=== PATIENT | male | born 1930 | race Caucasian/White ===

== ENCOUNTER 2016-06-21 11:19 | Observation (INO) | payer OTHER ==
[2016-06-21 12:09] LABS: % IMMATURE GRANULYOCYTES 0.4 % (0.0-1.1); ABSOLUTE IMMATURE GRANULOCYTES 0.04 10^3/uL (0.00-0.10); ADD DIFF? NO; ADD MORPH? NO; ADD SCAN? NO; ATYPICAL LYMPHOCYTE FLAG 10 (0-99); FRAGMENT RBC FLAG 0 (0-99); HEMATOCRIT 51.7 % (40.0-51.0); HEMOGLOBIN 17.1 g/dL (13.7-17.5); LEFT SHIFT FLG 0 (0-99); LIPEMIA HEMOLYSIS FLAG 80 (0-99); MEAN CELL HEMOGLOBIN 29.6 pg (27.9-34.1); MEAN CELL HEMOGLOBIN CONCENTR. 33.1 g/dL (32.4-36.7); MEAN CELL VOLUME 89.4 fL (81.5-99.8); MEAN PLATELET VOLUME 9.1 fL (8.7-11.7); PLATELET CLUMPS FLAG 10 (0-99); PLATELET COUNT 213 10^3/uL (150-400); RED BLOOD CELL COUNT 5.78 10^6/uL (4.40-6.38); RED CELL DISTRIBUTION WIDTH 13.2 % (11.5-15.2)
[2016-06-21 12:21] LABS: INR 2.39 (0.83-1.16); PROTIME(PATIENT) 26.3 SEC (12.0-15.0)
[2016-06-21 12:31] LABS: ANION GAP 14 mEq/L (8-16); CALCIUM 9.5 mg/dL (8.5-10.4); CARBON DIOXIDE 29 mEq/l (22-31); CHLORIDE 101 mEq/L (97-110); GLOMERULAR FILTRATION RATE 32; GLUCOSE 106 mg/dL (70-100); POTASSIUM 3.5 mEq/L (3.5-5.2); SODIUM 144 mEq/L (134-144)
[2016-06-21 12:42] LABS: TROPONIN I 0.017 ng/mL (0-0.034)
[2016-06-21] MEDS ORDERED: NS 500 ML IV ONE (12:46)
--- NOTE | 2016-06-21 12:50 | EDPHY ---
H & P Stated Complaint: fall on face. Pos LOC, pt is a poor historian Time Seen by Provider: 06/21/16 11:28 HPI/ROS: CHIEF COMPLAINT: facial injuries after fall HISTORY OF PRESENT ILLNESS: 85-year-old male with past medical history coronary artery disease status post stents, atrial fibrillation on Coumadin presents emergency department by ambulance after a fall. Patient states he was walking to the library at the [place] and thinks he tripped over something though is unsure. He reports remembering falling and thinking to himself that was going to hurt. Patient denies preceding chest pain, shortness of breath, lightheadedness or dizziness. He does not remember being picked up by the ambulance. Patient reports a mild headache. He denies shortness of breath, pain to his extremities. He thinks his tetanus is up-to-date. Last INR was 2.5 last week. REVIEW OF SYSTEMS: A comprehensive 10 point review of systems is otherwise negative aside from elements mentioned in the history of present illness. Source: Patient - Personal History Current Tetanus/Diphtheria Vaccine: Yes Current Tetanus Diphtheria and Acellular Pertussis (TDAP): Yes - Medical/Surgical History Hx Asthma: No Hx Chronic Respiratory Disease: No Hx Diabetes: No Hx Cardiac Disease: No Hx Renal Disease: No Hx Cirrhosis: No Hx Alcoholism: No Hx HIV/AIDS: No Hx Splenectomy or Spleen Trauma: No Other PMH: HIGH BLOOD PRESSURE, HIGH CHOLESTEROL, cardiac stent, on blood thinners - Social History Smoking Status: Former smoker - Physical Exam Exam: General Appearance: Alert, no distress, talking appropriately, comfortable. Head: nasal bridge laceration, laceration to nasal septum, abrasion to chin. 2 cm laceration horizontal to inside lower lip Eyes: Pupils equal, round, reactive to light, EOMI, no trauma, no injection. Ears: Clear bilaterally, no perforation, no hemotympanum Nose: laceration to nasal bridge and septum Neck: The cervical spine is non-tender and there is no pain or neurologic deficits with active range of motion. Cardiovascular: Heart is irregular rhythm. Good capillary refill all extremities. Chest: equal bilateral breath sounds. Left sided anterior chest wall ttp, superficial old abrasions to chest and abdomen Gastrointestinal: Soft, non-tender, non-distended. No rebound, guarding, or peritoneal signs. There is no evidence of external or internal trauma. Back:There is no thoracic or lumbar spine or paraspinal tenderness. Extremities: Left knee with tenderness, swelling and ecchymosis over patella. Neurological: The patient has normal DTRs and non-focal Cranial nerves, motor, sensory, and cerebellar exam Skin: see above Constitutional: Initial Vital Signs Temperature (C) 36.5 C 06/21/16 12:07 Heart Rate 105 H 06/21/16 12:07 Respiratory Rate 18 06/21/16 12:07 Blood Pressure 140/88 H 06/21/16 12:07 O2 Sat (%) 91 L 06/21/16 12:07 O2 Delivery Mode Room Air Allergies/Adverse Reactions: No Allergies [NKA] Allergy (Verified 09/04/13 06:33) Home Medications: Medication Instructions Recorded Acetaminophen [Tylenol ES 500 mg 500 - 1,000 mg PO Q6 PRN 09/04/13 (*)] Atorvastatin Calcium [Lipitor 10 10 mg PO HS 09/04/13 mg (*)] Dutasteride [Avodart 0.5 MG (*)] 0.5 mg PO HS 09/04/13 Hydrochlorothiazide [HCTZ (*)] 25 mg PO HS 09/04/13 Aspirin [Aspirin 81mg (OTC)] 81 mg PO HS 06/21/16 Naproxen Sodium [Aleve 220 MG (*)] 220 mg PO BID PRN 06/21/16 Warfarin Sodium 5 mg PO HS 06/21/16 Medical Decision Making - Diagnostics EKG Interpretation: EKG shows atrial fibrillation, rate 91, LVH Imaging: Head CT-Impression: 1. Senescent features, with no acute intracranial abnormality. 2. Posttraumatic joni- and infranasal changes, to be additionally defined under "CT scan of the facial bones" (see below). Cervical spine CTImpression: 1. Senescent features, with no acute intracranial abnormality. 2. Posttraumatic joni- and infranasal changes, to be additionally defined under "CT scan of the facial bones" (see below). Maxillofacial CTImpression: Paranasal soft tissue swelling with a fracture involving the anterior portion of the right nasal maxillary spine, and bilateral fractures involving the ventral protuberance of the maxillary alveolar ridge. Findings and recommendations were discussed with May Monique NP at 13:04 , on 06/21/2016. Dictated By: Guzman Ramos MD Rib x-rays independently reviewed by me- Impression: Negative. No acute rib fracture or pneumothorax. Dictated By: Ezekiel Pratt MD Left knee x-ray independently reviewed by me- Impression: 1. No acute fracture or effusion. 2. Prepatellar bursitis versus prepatellar hematoma. Dictated By: Ezekiel Pratt MD Procedures: Procedure: Laceration repair. Verbal consent was obtained from the patient. The 2 cm laceration on the nasal bridge was anesthetized using 1% lidocaine mixed with 0.5% Marcaine. The wound was carefully irrigated by the emergency department retail pharmacy technician. Next, the wound was prepped and draped in sterile fashion and explored to its base with a gloved finger. There were no deep structures involved. No tendon injury was identified. No vascular injury was identified. No foreign bodies were identified. The wound was repaired with 6.0 Prolene, 8. Simple interrupted sutures. The wound repair was simple. The procedure was performed by myself. Tetanus and antibiotic status were addressed. Procedure: Laceration repair. Verbal consent was obtained from the patient. The 1.5 cm laceration on the nasal septum was anesthetized using 1% lidocaine mixed with 0.5% Marcaine. The wound was carefully irrigated by the emergency department retail pharmacy technician. Next, the wound was prepped and draped in sterile fashion and explored to its base with a gloved finger. No vascular injury was identified. No foreign bodies were identified. The wound was repaired with 6.0 Prolene, 5 simple interrupted sutures. The wound repair was complex. Multiple wound margins required revising. Multiple flaps required alignment. The procedure was performed by myself. Tetanus and antibiotic status were addressed. Procedure: Laceration repair. Verbal consent was obtained from the patient. The 2 cm laceration on the inside lower lip was anesthetized using 1% lidocaine with epinephrine. The wound was carefully irrigated by the emergency department retail pharmacy technician. Next, the wound was prepped and draped in sterile fashion and explored to its base with a gloved finger. The wound was repaired with 5.0 Vicryl, 5 simple interrupted sutures. The wound repair was simple. The procedure was performed by myself. Tetanus and antibiotic status were addressed. ED Course/Re-evaluation: IV established, CBC, chemistry panel, troponin, EKG, head CT, neck CT and facial bone CT ordered along with INR. Labs are unremarkable aside from a creatinine of 2.0, last creatinine seen in system 2014 was 1.5, troponin negative, EKG shows atrial fibrillation, rate 91, CT head and neck show no acute abnormality, CT facial bones shows paranasal soft tissue swelling with a fracture involving the anterior portion of the right nasal maxillary spine, and bilateral fractures involving the ventral protuberance of the maxillary alveolar ridge. Patient is given 1 g of Ancef IV. 2pm- I spoke with ENT doctor Ellie who will review the CT scans. He agrees with plan for IV ancef. Based on report I read to him he thinks there will be nothing to do and no need for ENT follow up. Patient is given 500 ml of IV normal saline. 2pm. Pt admitted to med surg status post fall, mechanical vs syncope and theodore with creatinine of 2.0. - Data Points Laboratory Results: Laboratory Results 06/21/16 11:53 06/21/16 11:53 06/21/16 06/21/16 06/21/16 11:53 11:53 11:53 WBC 10.34 10^3/uL H 10^3/uL (3.80-9.50) RBC 5.78 10^6/uL 10^6/uL (4.40-6.38) Hgb 17.1 g/dL g/dL (13.7-17.5) Hct 51.7 % H % (40.0-51.0) MCV 89.4 fL fL (81.5-99.8) MCH 29.6 pg pg (27.9-34.1) MCHC 33.1 g/dL g/dL (32.4-36.7) RDW 13.2 % % (11.5-15.2) Plt Count 213 10^3/uL 10^3/uL (150-400) MPV 9.1 fL fL (8.7-11.7) Neut % (Auto) 65.3 % % (39.3-74.2) Lymph % (Auto) 26.5 % % (15.0-45.0) [place] % (Auto) 6.3 % % (4.5-13.0) Eos % (Auto) 1.0 % % (0.6-7.6) Baso % (Auto) 0.5 % % (0.3-1.7) Nucleat RBC Rel Count 0.0 % % (0.0-0.2) Absolute Neuts (auto) 6.76 10^3/uL H 10^3/uL (1.70-6.50) Absolute Lymphs (auto) 2.74 10^3/uL 10^3/uL (1.00-3.00) Absolute Monos (auto) 0.65 10^3/uL 10^3/uL (0.30-0.80) Absolute Eos (auto) 0.10 10^3/uL 10^3/uL (0.03-0.40) Absolute Basos (auto) 0.05 10^3/uL 10^3/uL (0.02-0.10) Absolute Nucleated RBC 0.00 10^3/uL 10^3/uL (0-0.01) Immature Gran % 0.4 % % (0.0-1.1) Immature Gran # 0.04 10^3/uL 10^3/uL (0.00-0.10) PT 26.3 SEC H SEC (12.0-15.0) INR 2.39 H (0.83-1.16) Sodium 144 mEq/L mEq/L (134-144) Potassium 3.5 mEq/L mEq/L (3.5-5.2) Chloride 101 mEq/L mEq/L (97-110) Carbon Dioxide 29 mEq/l mEq/l (22-31) Anion Gap 14 mEq/L mEq/L (8-16) BUN 55 mg/dL H mg/dL (7-23) Creatinine 2.0 mg/dL H mg/dL (0.7-1.3) Estimated GFR 32 Glucose 106 mg/dL H mg/dL (70-100) Calcium 9.5 mg/dL mg/dL (8.5-10.4) Troponin I 0.017 ng/mL ng/mL (0-0.034) Medications Given: Discontinued Medications Sodium Chloride (Ns) 500 mls @ 0 mls/hr IV ONCE ONE PRN Reason: Wide Open Stop: 06/21/16 12:47 Last Admin: 06/21/16 13:01 Dose: 500 mls Cefazolin Sodium/Dextrose (Ancef 1 Gm (Premix)) 50 mls @ 200 mls/hr IV EDNOW ONE PRN Reason: Protocol Stop: 06/21/16 13:37 Last Admin: 06/21/16 13:34 Dose: 50 mls Departure - Departure Disposition: [facility] Inpatient Acute Clinical Impression: THEODORE (acute kidney injury) Facial trauma Qualifiers: Encounter type: initial encounter Qualified Code(s): S09.93XA - Unspecified injury of face, initial encounter Fall Qualifiers: Encounter type: initial encounter Qualified Code(s): W19.XXXA - Unspecified fall, initial encounter Condition: Good
[2016-06-21] MEDS ORDERED: ONDANSETRON 4 MG/2 ML VIAL IVP PRN (15:11)
[2016-06-21] MEDS ORDERED: ONDANSETRON DISINTEGRATING 4 MG TAB PO PRN (15:11)
[2016-06-21] MEDS ORDERED: oxyCODONE IR 5 MG TAB PO PRN (15:11)
--- NOTE | 2016-06-21 16:21 | GHP ---
DATE OF ADMISSION: 06/21/2016 The patient is a pleasant 85-year-old gentleman with a history of coronary artery disease and perman ent atrial fibrillation who presents with mechanical fall today, or at least what sounds like mechan ical fall. It sounds like he was walking, he tripped. He has poor balance and it sounds like maybe perhaps poo r reflexes as well as a shoulder with a fair amount of arthritis. He was unable to get his hands up to his face. He landed on the face sustaining a laceration and ultimately discovered to have facia l fractures. There has been no nausea, vomiting, diarrhea recently. He takes hydrochlorothiazide but no other di uretics. He does not have heart failure symptoms such as PND or orthopnea or lower extremity edema. He did have antecedent chest pain, shortness of breath, etc. He got an LAD stent placed in 2013. He has had no anginal symptoms since. His related a history of several times over the last few years of him having extreme fatigue an d lightheadedness and he would have to sit down and stay seated for about an hour. It is not clear that this happen today. Also, he had a fall in [place] under similar circumstances a couple of years ago, where it sounds like he was evaluated by a medic but not brought to the hospital. He does not have rapid palpitations, and he does not take any kely agents. REVIEW OF SYSTEMS: Complete 10-point review of systems conducted negative except as noted in the HP I. PAST MEDICAL HISTORY: 1. Coronary artery disease. 2. Atrial fibrillation. 3. BPH. 4. Hypertension. ALLERGIES: No known drug allergies. HOME MEDICATIONS: 1. Warfarin. 2. Dutasteride. 3. Atorvastatin. 4. Aspirin. 5. Hydrochlorothiazide. SOCIAL HISTORY: Lifelong nondrinker. Quit smoking when he was 47 years old. Originally from [place]. 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 FAMILY HISTORY: Parents . PHYSICAL EXAM: VITAL SIGNS: Presenting vitals: Temp 36, pulse 105, blood pressure 140/88, breathi ng 18 times a minute, 91 on room air. GENERAL: No acute distress. He has blood on his face. He h as a laceration on his nose. It received about 3 stitches. HEENT: Sclerae anicteric. Oropharynx clear. Mucous membranes moist. NECK: Supple without lymphadenopathy or JVD. LUNGS: Clear to aus cultation bilaterally. HEART: S1, S2 without systolic murmur. ABDOMEN: Soft, nontender, nondiste nded. LOWER EXTREMITIES: Without edema. Calves are nontender. SKIN: Without rash. NEUROLOGIC: Nonfocal. LABS: White count 10.3, hematocrit 51, platelets are 213,000. INR is 2.4. Sodium 144, potassium 3 .5, chloride 101, bicarb 29, BUN 55, creatinine 2.0, glucose 106. Troponin 0.017. His baseline cre atinine is about 1.4. His EKG interpreted by me is pending. Cervical spine CT shows advanced degen erative changes but no acute osseous abnormality. CT of the brain shows atrophy as well as posttrau matic joni infranasal changes. CT of the face reveals a fracture involving the anterior portion of the right nasal maxillary spine and bilateral fractures involving the ventral protuberance of the ma xillary alveolar ridge. Ribs and chest x-ray shows no fracture. Knee x-ray interpreted by me shows no fracture. I discussed the case with May Monique and Dr. Duarte Taylor. ASSESSMENT/PLAN: This is an 85-year-old gentleman who presents with fall. 1. Fall. This is likely mechanical. I cannot rule out loida or tachyarrhythmia. We will place smita downey on telemetry. We will have PT and OT see him. 2. Atrial fibrillation. We will continue his warfarin. He is not on any kely agents. I do worry is having pauses or a tachy-loida syndrome, so we will follow him on telemetry. 3. Indeterminate troponin. We will cycle. He does have coronary artery disease. We will continue his aspirin. It sounds like he is off Plavix. We will continue statin. 4. Elevated INR. He has a therapeutic INR. We will continue it. 5. Acute kidney injury. His baseline creatinine is 1.4. I do not know if this is a diuretic effec t versus poor p.o. intake. This appears consistent with prerenal azotemia given his elevated BUN as opposed to progressive renal disease. We will give him 2 L IV fluids and follow and re-evaluate in the morning. 6. Code status. Full. 7. Disposition. [facility]. /[id number]/MODL
--- NOTE | 2016-06-21 18:30 | CPEKG ---
Heart Rate: 91 RR Interval: 659 QRSD Interval: 102 QT Interval: 364 QTC Interval: 448 QRS [place]: 44 T Wave [place]: 229 EKG Severity - ABNORMAL ECG - EKG Impression: ATRIAL FIBRILLATION, V-RATE 77-106 EKG Impression: PROBABLE LVH WITH SECONDARY REPOL ABNRM Electronically Signed By: Timothy Cummins 21-Jun-2016 18:48:34
[2016-06-21] MEDS: NS 1,000 ML IV SCH (19:52)
[2016-06-21] MEDS: CEPHALEXIN 500 MG CAP PO SCH (19:54)
[2016-06-21] MEDS ORDERED: WARFARIN SODIUM 5 MG TAB PO SCH (21:00)
[2016-06-21] MEDS ORDERED: ASPIRIN 81 MG CHEWABLE TAB PO SCH (21:00)
[2016-06-21] MEDS ORDERED: DUTASTERIDE 0.5 MG CAP PO SCH (21:00)
[2016-06-21] MEDS ORDERED: ATORVASTATIN CALCIUM 10 MG TAB PO SCH (21:00)
[2016-06-21] MEDS: ACETAMINOPHEN 500 MG TAB PO SCH (21:37)
[2016-06-22] MEDS: CEPHALEXIN 500 MG CAP PO SCH ×3 (00:18→11:45)
[2016-06-22] MEDS: NS 1,000 ML IV SCH (02:34)
[2016-06-22] MEDS: ACETAMINOPHEN 500 MG TAB PO SCH (04:43)
[2016-06-22 05:20] LABS: % IMMATURE GRANULYOCYTES 0.1 % (0.0-1.1); ABSOLUTE IMMATURE GRANULOCYTES 0.01 10^3/uL (0.00-0.10); ADD DIFF? NO; ADD MORPH? NO; ADD SCAN? NO; ATYPICAL LYMPHOCYTE FLAG 10 (0-99); FRAGMENT RBC FLAG 0 (0-99); HEMATOCRIT 44.1 % (40.0-51.0); HEMOGLOBIN 14.6 g/dL (13.7-17.5); LEFT SHIFT FLG 0 (0-99); LIPEMIA HEMOLYSIS FLAG 80 (0-99); MEAN CELL HEMOGLOBIN 29.6 pg (27.9-34.1); MEAN CELL HEMOGLOBIN CONCENTR. 33.1 g/dL (32.4-36.7); MEAN CELL VOLUME 89.3 fL (81.5-99.8); MEAN PLATELET VOLUME 9.2 fL (8.7-11.7); PLATELET CLUMPS FLAG 0 (0-99); PLATELET COUNT 169 10^3/uL (150-400); RED BLOOD CELL COUNT 4.94 10^6/uL (4.40-6.38); RED CELL DISTRIBUTION WIDTH 13.2 % (11.5-15.2)
[2016-06-22 05:30] LABS: INR 3.37 (0.83-1.16); PROTIME(PATIENT) 34.6 SEC (12.0-15.0)
[2016-06-22 05:49] LABS: POTASSIUM 3.1 mEq/L (3.5-5.2)
[2016-06-22 05:50] LABS: ANION GAP 12 mEq/L (8-16); CALCIUM 8.3 mg/dL (8.5-10.4); CARBON DIOXIDE 22 mEq/l (22-31); CHLORIDE 106 mEq/L (97-110); CREATININE 1.6 mg/dL (0.7-1.3); GLOMERULAR FILTRATION RATE 41; GLUCOSE 99 mg/dL (70-100); SODIUM 140 mEq/L (134-144)
[2016-06-22 05:51] LABS: TROPONIN I 0.023 ng/mL (0-0.034)
[2016-06-22] MEDS ORDERED: PROTOCOL POTASSIUM 1 DOSE MISC PRN (11:18)
[2016-06-22 11:54] LABS: POTASSIUM 3.3 mEq/L (3.5-5.2)
[2016-06-22 11:59] VITALS: BP 129/85; PULSE 101; RESP 16; TEMP 97.6; O2SAT 94
--- NOTE | 2016-06-22 20:41 | GDS ---
[f rep st] DISCHARGE SUMMARY DISCHARGE DIAGNOSES: 1. Mechanical fall with maxillary fractures. 2. Extensive laceration status post repair. 3. Acute renal failure due to hypovolemia. 4. Atrial fibrillation. 5. Hypertension. HISTORY: Enrique Forbes is an 85-year-old male who had a mechanical fall. He clearly tripped, fel l onto his face and has extensive facial fractures. He had a laceration sutured in the emergency ro om. ENT was contacted regarding the facial fractures, and they were felt to not require any interve ntion. Empiric antibiotics were recommended. He was incidentally noted to have acute on chronic kidney disease. Baseline creatinine is reported 1.3, although he came in at 2.0. He adamantly denies dizziness contributing to his fall, although i t sounds like he has had some dizziness episodes intermittently. He was hydrated with IV fluid and creatinine did come down, so suspect hypovolemia is a significant issue. He is on longstanding hydr ochlorothiazide which is recommended for discontinuation. He did not have any elevated blood pressu res here. If his blood pressure does rise as an outpatient, an alternative agent can be per prescri bed at that time. He does have chronic atrial fibrillation and does not require any rate control ag ents. His heart rate did run a little fast, in the high 90s to low 100s, at times. I did recommend consideration for beta blockade which he declined at this time, and will only initiate that if chao mmended by Cardiology. Dr. Taylor, his user interface engineer, did see him here in the hospital. He is chron ically anticoagulated on warfarin which was continued. DISCHARGE MEDICATIONS: Please see computer record for full detailed list. New medication: Augment in 875 mg p.o. twice daily x7 days recommended by ENT in the ER for empiric treatment with sinus fra cture. Discontinued medications: Hydrochlorothiazide 25 mg p.o. daily and Naprosyn 220 mg p.o. twice daily as needed. ADDITIONAL DISCHARGE INSTRUCTIONS: 1. Return to ER in 5 days for suture removal. 2. Discussed with Primary Care and Cardiology further management of hypertension and atrial fibrill ation. The patient was seen examined by me on the day of discharge. /[id number]/MODL
== END 2016-06-22 13:05 | disposition home or self-care (01) ==
LOC: EDUNIT# → F3E 18:23
PROVIDERS: ADMIT Internal Medicine; ATTEND Internal Medicine
DX: S02.42XA Fracture of alveolus of maxilla, initial encounter for closed fracture (principal); S01.21XA Laceration without foreign body of nose, initial encounter; N17.9 Acute kidney failure, unspecified; I25.10 Atherosclerotic heart disease of native coronary artery without angina pectoris; Z95.5 Presence of coronary angioplasty implant and graft; I48.91 Unspecified atrial fibrillation; Z79.01 Long term (current) use of anticoagulants; W01.10XA Fall on same level from slipping, tripping and stumbling with subsequent striking against unspecified object, initial encounter; Y92.214 College as the place of occurrence of the external cause
CPT/HCPCS: 12013; 70450; 70486; 71101; 72125; 73564; 93005; 96374; 97165; 99285; G0378; G8987; G8988; G8989; J0690

== ENCOUNTER 2016-08-04 06:22 | Inpatient (IN) | payer OTHER ==
[~2016-08-04 06:22] MED LIST: CHLORHEXIDINE GLUC HIBICLENS 118 ML BTL TP ONE; LIDO/BUPIVA 10ML SYR IU ONE; LIDO/BUPIVA/morphINE 15ML SYR IU ONE; ceFAZolin 2 GM/DEXTROSE 100 ML IV ONE
[2016-08-04] MEDS ORDERED: LIDOCAINE 1% 2 ML INJ ONE (06:45)
[2016-08-04] MEDS ORDERED: LIDOCAINE/BUP/DURAMORPH 15 ML SYR IF ONE (07:38)
[2016-08-04] MEDS ORDERED: LIDOCAINE/BUPIVICAINE 10 ML SYR ONE (07:38)
[2016-08-04 07:39] LABS: INR 1.15 (0.83-1.16); PROTIME(PATIENT) 14.7 SEC (12.0-15.0)
[2016-08-04 07:40] LABS: APTT 29.8 SEC (23.0-38.0)
[2016-08-04] MEDS ORDERED: fentaNYL 250 MCG/5 ML INJ ONE (07:43)
[2016-08-04] MEDS ORDERED: MIDAZOLAM 2 MG/2 ML VIAL ONE ×2 (07:44→08:25)
[2016-08-04] MEDS ORDERED: PROPOFOL 200 MG/20 ML VIAL ONE (07:44)
[2016-08-04] MEDS ORDERED: BUPIVACAINE/EPI 0.5% 30 ML SDV ONE (07:54)
[2016-08-04] MEDS ORDERED: HYDROCODONE/APAP 5/325 TAB PO PRN (10:20)
[2016-08-04] MEDS ORDERED: TEMAZEPAM 15 MG CAP PO PRN (10:20)
--- NOTE | 2016-08-04 12:22 | GOP ---
[f rep st] OPERATIVE REPORT DATE OF OPERATION: 08/04/2016 SURGEON: Mandeep Marin MD KEY WORKER: Dr. Daniel Price. It should be noted no qualified resident was available. assistant women's rowing coach was necessary to assist with the exposure and the placement of the total shoulder. SECOND KEY WORKER: DOUGIE Renteria. PATIENT POSITION: Beach chair. ANESTHESIA: General with interscalene block. ANESTHESIOLOGIST: Dr. Valero. PREOPERATIVE DIAGNOSIS: Right shoulder osteoarthritis with biceps tendinitis. POSTOPERATIVE DIAGNOSIS: Right shoulder osteoarthritis with biceps tendinitis. PROCEDURE PERFORMED: 1. Right total shoulder arthroplasty utilizing a press-fit Tornier Aequalis Ascend Flex humeral stem size 4A with a modular high offset humeral head 48 x 18 and a cemented CortiLoc pegged glenoid size M30, CPT code 41526. 2. Biceps tenodesis, CPT code 56543. FINDINGS: INDICATIONS: The patient is an 85-year-old with persistent right shoulder osteoarthritis. Patient has had persistent pain despite nonoperative management , has not improved. He also had biceps tendinitis. The options discussed and after getting preoperative clearance from his science liaison, he desired to go ahead with a right total shoulder arthroplasty. He understood the potential risks and benefits, including, but not limited to, bleeding, infection, persistent pain, stiffness, anesthetic risks, potential for injury to the nerve. The patient understood these and desired to proceed. DESCRIPTION OF PROCEDURE: After interscalene block, the patient was placed under general anesthesia and placed in a modified beach chair position with a Marie head rest. The right upper extremity was brought over the lateral aspect of the table. The right upper extremity was prepped and draped in the usual sterile manner. Anatomic landmarks were identified. The anterior incision was made. This was extended down from the coracoid process extending down inferiorly and laterally. The deltopectoral interval was identified. The cephalic vein was preserved. Next, the conjoined tendon was identified. This was then taken and the self retainer was placed. The top 5 mm of the pectoralis was released. The anterior humeral circumflex vessels were then tied off using 3-0 silk ties. The biceps tendon was then tenodesed. There was quite a bit of edema around the biceps and very boggy bicipital sheath. The groove was curetted. A 2.9 mm juggernaut suture anchor was placed using two #2 MaxBraid sutures. These were placed through and around the biceps tendon. The biceps was tenodesed in the groove. The biceps was then cut above this. Next, the subscapularis was then divided approximately a centimeter away from the lesser tuberosity. The subscapularis was tagged with #2 nonabsorbable sutures. The arm was externally rotated. The capsule was taken off the inferior neck and carefully the arm was externally rotated and the humeral head exposed. The axillary nerve was identified and protected during the entire procedure. A retractor was placed to expose the glenoid. The area of the rotator interval was then released medially just above the subscapularis, and the subscapularis with capsule was released off the anterior glenoid. The glenoid was subsequently exposed. The humeral head was exposed. Next, a humeral head cut was made in anatomic alignment with approximately 30 degrees of retroversion. The central hole was identified. The best fit humeral head was a 48 mm offset head. The best size stem was a 4A. The trial stem was placed. The base protector was placed. The glenoid was exposed. Next, the best size glenoid was a 30, both for superior to inferior and anterior to posterior curvature. The central area was identified. The glenoid was reamed. The central peg was drilled followed by 3 peripheral pegs. The area was thoroughly irrigated. An epinephrine-soaked sponge was placed after the trial was an excellent fit for the size M30 glenoid. Following this, the cement had been mixed and then placed into the holes after the epinephrine soaked sponge was taken out. The glenoid was then cemented into place. This allowed to dry for approximately 15 minutes to set. Once this was set, any excess cement was taken off. A trial head was again placed, and the best fit was a 48 x 18 mm humeral head with a high offset. The trial stem was taken out. The final implant after irrigation was then placed. This was the Tornier Aequalis Ascend Flex standard humeral stem size 4A with an angle 127 x 0.5 degrees with a humeral head 48 x 18 mm high offset. This allowed 50% translation posteriorly and anteriorly. The area was irrigated following the final placement. Subscapularis closed using #2 FiberWire sutures. The drain was subsequently placed. The deltopectoral interval closed proximally using 0 Vicryl sutures. Skin was closed using 3-0 Monocryl followed by running 3-0 Prolene. Sterile dressing was applied. Patient was placed in a sling with a small abduction pillow. The patient had sterile dressing. Patient was awakened, taken to the recovery room in stable condition. Sponge, instrument and needle counts were correct. PLAN: The plan will be for patient to undergo physical therapy according to total shoulder arthroplasty. Patient will be admitted for pain relief following the procedure. The patient will be in a sling for 6 weeks. Will follow the total shoulder arthroplasty. The patient undergo physical therapy and will be admitted. /[id number]/MODL MTDD
--- NOTE | 2016-08-04 14:19 | PDCONSULT ---
Cable Machine Operator Note: Date of service: 08/04/2016 Requesting physician: Dr. Mandeep Marin Reason for consultation: Postoperative medical management of atrial fibrillation and hypertension History of presenting illness: This is a 85 y/o male with history of hypertension, atrial fibrillation, coronary artery disease, dyslipidemia is postoperative day 0 right total shoulder arthroplasty. Postoperatively he has been noted to be hypertensive with a blood pressure of 120/100. He denies any vision changes, shortness of breath, chest pain, or headache. It appears that he did not take his home dose of losartan today in preparation for surgery. He was taken off of his warfarin and aspirin on July 30 and had a preoperative INR 1.15. He denies any palpitations. Past medical history: 1. hypertension 2. chronic atrial fibrillation on anticoagulation 3. coronary artery disease 4. Dyslipidemia 5. BPH Past surgical history: 1. retinal surgery to repair a retinal detachment Home medications: Were reviewed refer to [employer] for details Allergies: Aspirin Social history: He denies any alcohol. He is a former smoker. Family history: Parents are Review of systems: 10 point review of systems was done and is negative except for as mentioned in the HPI Physical Exam: 08/04/16 14:07 Heart Rate 80 Respiratory 18 Rate O2 Sat (%) 98 Temperature (C) 36.3 C Blood Pressure 147/100 H 08/04/16 07:20 PT 14.7 INR 1.15 APTT 29.8 GENERAL: Well-appearing, no acute distress, nontoxic appearing HEENT: Head is normocephalic atraumatic, eyes are PERRLA, ears are normal appearing, mucous membranes are moist without lesions CARDIOVASCULAR: Irregularly irregular S1 and S2 without murmurs, rubs, clicks, gallops PULMONARY: Lungs are clear to auscultation bilaterally without wheezes, rales, rhonchi; respiratory effort is nonlabored without signs of acute respiratory distress. ABDOMINAL/GASTROINTESTINAL: Soft, nontender, nondistended with normoactive bowel sounds. There is no guarding or rebound tenderness. GENITOURINARY: No Bella in place EXTREMITIES: No clubbing, cyanosis, or edema NEUROLOGIC: Cranial nerves 2-12 are grossly intact; SKIN: There are no rashes; I did not examine the patient for decubiti right shoulder postoperative dressing in place that is clean dry and intact Assessment/plan: This is an 85-year-old male with history of hypertension and chronic atrial fibrillation postoperative day 0 right total shoulder arthroplasty # Chronic atrial fibrillation [id number] score of 3 (hypertension & over 75) therefore he is at a 3.2% 1 year stroke risk. According to the BRIDGE trial this patient is not high risk therefore he does not need to be bridged with heparin. -may resume warfarin once deemed safe by surgery # Hypertension - resume home dose of losartan - continue to monitor blood pressure #hyperlipidemia - continue home medications #BPH -Continue home medications Thank you for allowing me to participate in the care of Mr. Forbes. hospital service will continue to follow along with you throughout his hospitalization
[2016-08-04] MEDS ORDERED: WARFARIN SODIUM 5 MG TAB PO SCH ×2 (16:00→21:00)
[2016-08-04] MEDS: DOCUSATE SODIUM 100 MG CAP PO SCH (20:32)
[2016-08-04] MEDS ORDERED: LOSARTAN POTASSIUM 50 MG TAB PO SCH (21:00)
[2016-08-04] MEDS ORDERED: ASPIRIN 81 MG CHEWABLE TAB PO SCH (21:00)
[2016-08-04] MEDS ORDERED: DUTASTERIDE 0.5 MG CAP PO SCH (21:00)
[2016-08-04] MEDS ORDERED: ATORVASTATIN CALCIUM 10 MG TAB PO SCH (21:00)
[2016-08-04 23:19] VITALS: O2SAT 97
[2016-08-05 05:17] LABS: INR 1.19 (0.83-1.16); PROTIME(PATIENT) 15.1 SEC (12.0-15.0)
--- NOTE | 2016-08-05 07:34 | SOAPPROG ---
SOAP Progress Note Assessment/Plan: Assessment: 85yo M POD 1 s/p Right TSA, doing very well. Plan: Follow-up with PT within several days of discharge to begin therapy - follow recommended post-op TSA protocol. Has already restarted anticoagulation - no contraindication from our standpoint so he can continue that as prescribed. Keep clean, dry, dressing over the incision and follow up with Antonia Kumar as scheduled for wound check. Follow-up hospitalist recommendations and discharge home when ready - we will put in orders this morning. 08/05/16 07:30 08/05/16 08:04 08/05/16 08:06 Subjective: Mr. Forbes is POD 1 s/p right TSA. His pain is well controlled this morning - block still has some residual pain relief. He is tolerating diet without nausea or vomiting. He is urinating without difficulty. He was on a little precautionary O2 via nasal canula overnight but they are weaning that this morning. Objective: Vital Signs Temp Pulse Resp BP Pulse Ox 36.7 C 98 17 131/99 H 97 08/05/16 03:50 08/05/16 03:50 08/05/16 03:50 08/05/16 03:50 08/05/16 03:50 08/04/16 08/05/16 08/06/16 05:59 05:59 05:59 Intake Total 1250 Output Total 245 Balance 1005 PT 15.1 SEC (12.0-15.0) H 08/05/16 04:42 INR 1.19 (0.83-1.16) H 08/05/16 04:42 AFVSS General: alert and oriented RUE MSK: Observation: drain and dressing removed and replaced with clean, dry dressing. Steri strips are intact and there is no concern for post-op wound dehiscence or infection. NV status: patient did receive a pre-operative block that is affecting his exam at this time, but he has a palpable radial pulse and less than 2 second capillary refill. He is able to flex and extend all five fingers. Sling was replaced as well as cold therapy. - Pending Discharge Pending Discharge Within 24 Hours: Yes Pending Discharge Date: 08/06/16 Pending Discharge Time: 11:00 ICD10 Worksheet Patient Problems: Problems Problem Status Onset THEODORE (acute kidney injury) Acute Facial trauma Acute Fall Acute
[2016-08-05 08:26] VITALS: BP 116/80; PULSE 109; RESP 20; TEMP 99
[2016-08-05] MEDS: DOCUSATE SODIUM 100 MG CAP PO SCH (08:43)
== END 2016-08-05 12:06 | disposition home or self-care (01) | DRG 483 ==
LOC: F3N 06:22
PROVIDERS: ADMIT Orthopaedic Surgery Sports Medicine; ATTEND Orthopaedic Surgery Sports Medicine
DX: M19.011 Primary osteoarthritis, right shoulder (principal); I10 Essential (primary) hypertension; I48.2 Chronic atrial fibrillation; M75.21 Bicipital tendinitis, right shoulder; I25.10 Atherosclerotic heart disease of native coronary artery without angina pectoris; N40.0 Benign prostatic hyperplasia without lower urinary tract symptoms; E78.5 Hyperlipidemia, unspecified; Z79.01 Long term (current) use of anticoagulants
CPT/HCPCS: 97161-GP; 97165-GO; 97535-GO; C1713; G8978-GP-CI; G8979-GP-CI; G8980-GP-CI; G8987-GO-CJ; G8988-GO-CJ; G8989-GO-CJ; J0171; J0690; J2250; J2274; J2704; J3010

== ENCOUNTER → 2017-02-06 | Outpatient (CLI) | payer OTHER | LOC: BHFA 11:30 | PROVIDERS: ATTEND Internal Medicine Cardiovascular Disease | DX: I48.91 Unspecified atrial fibrillation (principal); I10 Essential (primary) hypertension ==

== ENCOUNTER → 2018-06-08 | Outpatient (CLI) | payer OTHER | LOC: FIMAGING 11:29 | PROVIDERS: ATTEND Internal Medicine | DX: N18.4 Chronic kidney disease, stage 4 (severe) (principal); N40.0 Benign prostatic hyperplasia without lower urinary tract symptoms; R93.41 Abnormal radiologic findings on diagnostic imaging of renal pelvis, ureter, or bladder ==